=== PATIENT | female | born 1990 | race Caucasian/White ===

== ENCOUNTER 2016-05-19 19:25 | Emergency (ER) ==
[2016-05-19 19:43] LABS: MANUAL DIFF NEEDED? NO
[2016-05-19 19:47] LABS: URINE CULTURE NEEDED? NO; URINE MICRO REVIEW NEEDED? NO; URINE SOURCE CLEAN CATCH
[2016-05-19 19:49] LABS: BASO% 0.4 % (0.0-0.8); EOS% 0.9 % (0.0-10.0); HEMATOCRIT 41.4 % (37.0-47.0); HEMOGLOBIN 14.2 g/dL (12.0-16.0); IMM GRAN# 0.03 X1000 (0.0-0.04); IMM GRAN% 0.3 % (0.0-0.5); LYMPH# 3.43 X1000 (1.2-3.4); LYMPH% 32.3 % (20.5-51.1); MCH 33.2 PG (27-31); MCHC 34.3 g/dL (33-37); MCV 96.7 FL (81-99); MONO# 0.49 X1000 (0.11-0.59); MONO% 4.6 % (1.7-9.3); MPV 10.7 FL (7.4-10.4); NEUT% 61.5 % (42.2-75.2); PLT 315 X1000 (130-400); RBC 4.28 XMIL (4.2-5.4)
[2016-05-19 19:54] LABS: BILIRUBIN URINE NEGATIVE (NEGATIVE); BLOOD URINE NEGATIVE (NEGATIVE); COLOR YELLOW; GLUCOSE URINE NEGATIVE (NEGATIVE); LEUKOCYTES URINE NEGATIVE (NEGATIVE); NITRITE URINE NEGATIVE (NEGATIVE); PH URINE 7.5; PROTEIN URINE NEGATIVE (NEGATIVE); SP GRAVITY URINE 1.021; TURBIDITY URINE HAZY (CLEAR); UR EPITHELIAL CELLS <10 /HPF (<10); URINE BACTERIA 1+ /HPF; URINE RBC <10 /HPF (<10); URINE WBC <10 /HPF (<10); UROBILINOGEN URINE NORMAL (NORMAL)
[2016-05-19 20:07] LABS: AGAP 13; ALKALINE PHOSPHATASE 55 U/L (32-104); AMYLASE 44 U/L (20-200); BUN 12 mg/dL (8-22); CALCIUM 8.7 mg/dL (8.8-10.2); CHLORIDE 104 mmol/L (98-107); COSMO 276; GOT 18 U/L (10-30); GPT 30 U/L (10-36); LIPASE 57 U/L (13-60); POTASSIUM 4.2 mmol/L (3.5-5.1); SODIUM 137 mmol/L (136-145); TCO2 20 mmol/L (25-35); TOTAL BILIRUBIN 0.26 mg/dL (0.20-1.00); TOTAL PROTEIN 6.1 g/dL (6.3-8.3)
[2016-05-19] MEDS ORDERED: DILAUDID IV ONE (20:15)
[2016-05-19] MEDS ORDERED: ZOFRAN IV ONE (20:15)
[2016-05-19] MEDS ORDERED: FLAGYL 500 MG/NS 100 ML IV ONE (20:15)
[2016-05-19] MEDS ORDERED: NS 1,000 ML IV ONE (20:15)
--- NOTE | 2016-05-19 20:22 | PROVIDER DOCUMENTATION ---
HPI-Abdominal Pain/GI Problem - General Chief Complaint: Abdominal Pain Stated Complaint: BLOOD IN STOOL, LOWER RT SIDE PAIN Time Seen by Provider: 05/19/16 20:06 Source: patient Allergies/Adverse Reactions: Patient Allergies Allergy/AdvReac Type Severity Reaction Status Date / Time No Known Allergies Allergy Verified 05/19/16 19:40 - History of Present Illness-ABD Nature of Presenting Problems: Pt is a 26 yof who presents to ER with CC of generalized abdominal pain x3 days and diarrhea for the past month. Pt reports that she has been having diarrhea and hematochezia for the past month and has recently been having worsening acid reflux. Pt reports that her father's side of her family has hx of Crohn's disease, and pt reports that she was diagnosed with diverticulitis at [facility] 6- 8 months ago. On exam, pt has moderate RLQ and epigastric tenderness on palpations. Abdominal Pain Onset Location: reports: RLQ, epigastric Pain Radiation: reports: no radiation Quality of Pain: reports: cramping Severity in ED: reports: moderate Onset/Duration: reports: other (Diarrhea and hematochezia:1 month Abdominal pain x3 days) Timing: reports: still present, getting worse Associated Symptoms: reports: diarrhea (with hematochezia), fever/chills (No fever, but reports chills), heartburn. denies: constipation, loss of appetite, nausea, shortness of breath, vomiting, weakness Last BM: this evening Dark Stools Present?: reports: other ("Blood in stool") Rectal Bleeding: reports: bloody diarrhea Review of Systems - Adult - REVIEW OF SYSTEMS - ADULT Constitutional: reports: chills, night sweats. denies: fever, fatique Eyes: reports: no symptoms reported Ears, Nose, Mouth & Throat: reports: no symptoms reported Cardiovascular: reports: no symptoms reported Respiratory: reports: no symptoms reported Gastrointestinal: reports: abdominal pain, diarrhea, frequent heartburn, rectal bleeding, other (hematochezia). denies: hematemesis, constipation, difficulty swallowing, nausea, poor appetite, vomiting Genitourinary: reports: no symptoms reported Musculoskeletal: reports: no symptoms reported Integumentary: reports: no symptoms reported Neurological: reports: no symptoms reported Psychiatric: reports: no symptoms reported Endocrine: reports: no symptoms reported Hematologic/Lymphatic: reports: no symptoms reported Allergic/Immunologic: reports: no symptoms reported All Other Systems: Reviewed and Negative Past History - Adult - PAST MEDICAL HISTORY-ADULT Review of Records: reports: Nursing Assessment Review, Medications Reviewed Gastrointestinal: reports: other (diverticulitis) - PRIOR SURGERIES/PROCEDURES Surgical/Procedure History: reports: cholecystectomy, other (wisdom teeth) - IMMUNIZATION STATUS Childhood Immunizations: See Nurse Assessment Flu Vaccine: See Nurse Assessment - FAMILY HISTORY Family History: other (Father has hx of Chron's diseae.) - SOCIAL HISTORY Smoking: cigarettes, less than 1 pack/day Provider spent 3-5 mins advising pt. on dangers of tobacco.: Discussed manners to quit use, and f/u contacts for add'l counseling. Physical Exam-General - PHYSICAL EXAM-ADULT Initial Vital Signs Reviewed: Yes - CONSTITUTIONAL General Appearance: appears well, alert, mild distress - RESPIRATORY Respiratory: chest non-tender, lungs clear, normal breath sounds - CARDIOVASCULAR Cardiovascular: normal peripheral pulses, regular rate, rhythm - GASTROINTESTINAL (ABDOMEN) Abdominal Exam: normal bowel sounds, soft, tenderness (RLQ and epigastric) - LYMPHATIC Lymphatic: no adenopathy - MUSCULOSKELETAL Back Exam: no CVA tenderness, no vertebral tenderness Extremity: normal range of motion, non-tender, normal gait - SKIN Integumentary: normal color, normal turgor, warm/dry - NEUROLOGIC Neurologic: grossly normal, no motor/sensory deficits - PSYCHIATRIC Psych/Mental Status: normal mood/affect, normal thought content, normal thought process, oriented x 3 Progress - PLAN OF CARE/RESULTS Progress/Plan/Lab Results: Vital Signs - 24 hr 05/19/16 19:30 Temperature 98.3 F Pulse Rate 91 H Respiratory 14 Rate Blood Pressure 150/85 O2 Sat by Pulse 98 Oximetry Orders Category Date Time Status CT ABD/PELVIS W/ IV CONT ONLY [CT] Stat Exams 05/19/16 20:17 Taken AMYLASE [CHEM] Stat Lab 05/19/16 19:37 Completed CBC WITH ELECTRONIC DIFF [HEME] Stat Lab 05/19/16 19:37 Completed COMPREHENSIVE METABOLIC PANEL [CHEM] Stat Lab 05/19/16 19:37 Completed LIPASE [CHEM] Stat Lab 05/19/16 19:37 Completed TEST-URINE [PREG] Stat Lab 05/19/16 19:44 Completed Stool [C DIFF TOXIN] [STOOL] Stat Lab 05/19/16 19:48 Uncollected Stool [OCCULT BLOOD SCREENING] [STOOL] Stat Lab 05/19/16 19:34 Uncollected UA NIMS W/REFLEX CULT [URINALYSIS] Stat Lab 05/19/16 19:44 Completed 0.9% Sodium Chloride Inj [Ns] 1,000 ml Med 05/19/16 20:15 Discontinued IV 999 mls/hr Hydromorphone [Dilaudid] Med 05/19/16 20:15 Discontinued 1 mg IV NOW ONE Metronidazole 500 mg/Ns [Flagyl 500 mg/Ns] 100 ml Med 05/19/16 20:15 Discontinued IV NOW Ondansetron [Zofran] Med 05/19/16 20:15 Discontinued 4 mg IV NOW ONE Laboratory Tests 05/19/16 05/19/16 05/19/16 19:37 19:37 19:44 WBC 10.61 RBC 4.28 Hgb 14.2 Hct 41.4 MCV 96.7 MCH 33.2 H MCHC 34.3 RDW Std Deviation 13.0 Plt Count 315 MPV 10.7 H Immature Gran % (Auto) 0.3 Neut % (Auto) 61.5 Lymph % (Auto) 32.3 Stephenson % (Auto) 4.6 Eos % (Auto) 0.9 Baso % (Auto) 0.4 Immature Gran # (Auto) 0.03 Neut # (Auto) 6.52 H Lymph # (Auto) 3.43 H Stephenson # (Auto) 0.49 Eos # (Auto) 0.10 Baso # (Auto) 0.04 Sodium 137 Potassium 4.2 Chloride 104 Carbon Dioxide 20 L Anion Gap 13 BUN 12 Creatinine 0.7 Estimated GFR/1.73 m2 > 60 BUN/Creatinine Ratio 17 Glucose 136 H Calculated Osmolality 276 Calcium 8.7 L Total Bilirubin 0.26 AST 18 ALT 30 Alkaline Phosphatase 55 Total Protein 6.1 L Albumin 4.0 Globulin 2.1 Albumin/Globulin Ratio 1.9 Amylase 44 Lipase 57 Urine Source Urine Color Urine Turbidity Urine pH Ur Specific [place] Urine Protein Ur Glucose (Stick) Ur Ketones (Stick) Urine Blood Urine Nitrite Urine Bilirubin Urobilinogen Dipstick Urine Leukocytes Urine WBC (Auto) Urine RBC (Auto) U Epithel Cells (Auto) Urine Bacteria (Auto) Urine Test NEGATIVE 05/19/16 19:44 WBC RBC Hgb Hct MCV MCH MCHC RDW Std Deviation Plt Count MPV Immature Gran % (Auto) Neut % (Auto) Lymph % (Auto) Stephenson % (Auto) Eos % (Auto) Baso % (Auto) Immature Gran # (Auto) Neut # (Auto) Lymph # (Auto) Stephenson # (Auto) Eos # (Auto) Baso # (Auto) Sodium Potassium Chloride Carbon Dioxide Anion Gap BUN Creatinine Estimated GFR/1.73 m2 BUN/Creatinine Ratio Glucose Calculated Osmolality Calcium Total Bilirubin AST ALT Alkaline Phosphatase Total Protein Albumin Globulin Albumin/Globulin Ratio Amylase Lipase Urine Source CLEAN CATCH Urine Color YELLOW Urine Turbidity HAZY Urine pH 7.5 Ur Specific [place] 1.021 Urine Protein NEGATIVE Ur Glucose (Stick) NEGATIVE Ur Ketones (Stick) NEGATIVE Urine Blood NEGATIVE Urine Nitrite NEGATIVE Urine Bilirubin NEGATIVE Urobilinogen Dipstick NORMAL Urine Leukocytes NEGATIVE Urine WBC (Auto) <10 Urine RBC (Auto) <10 U Epithel Cells (Auto) <10 Urine Bacteria (Auto) 1+ Urine Test - CT/MRI 1 CT Study: Abdomen, Pelvis Impression: See EMR Report CT Results: constipation Departure - Departure Time of Disposition Order: 21:47 DIAGNOSIS: Colitis Constipation Qualifiers: Constipation type: unspecified constipation type Qualified Code(s): K59.00 - Constipation, unspecified Abdominal pain Qualifiers: Abdominal location: unspecified location Qualified Code(s): R10.9 - Unspecified abdominal pain Disposition: HOME 01 Certified Medical Emergency: Emergent Condition: Stable Additional Instructions: Follow up with Dr. Bennett ED Follow Up Instructions: You have been treated by a care provider in the Emergency Department. These instructions are being provided to you so you can have an understanding of how to care for yourself upon discharge. Upon discharge from the Emergency Department, you are responsible for making arrangements for follow-up care by a physician of your choice. Take all prescribed medications as directed. Return to the Emergency Department immediately for any new or worsening symptoms. You may call the Physician Referral phone number at [phone] to obtain a list of Physicians who are taking new patients. Prescriptions: Ciprofloxacin HCl [Cipro] 500 mg PO BID 7 Days Polyethylene Glycol 3350 [Miralax] 17 gm PO DAILY #7 powd.pack Tramadol [Ultram] 50 mg PO TID PRN PRN #30 tablet PRN Reason: Pain Referrals: None,PCP [Primary Care Provider] - Jaswinder Bennett MD [STAFF PHYSICIAN] - Attestation - Scribe Verification/Attestation Scribe:: Ruben Chu Acting as Scribe for:: Eddie Up Scribe documention review:: This chart was documented by a scribe and accurately reflects the service the provider performed and the decisions made by the provider.
[2016-05-19 22:50] VITALS: BP 145/91
--- NOTE | 2016-05-20 00:19 | Diag Imaging Result Document ---
PROCEDURE NAME: CT ABD/PELVIS W/ IV CONT ONLY - 05/19/2016 CT ABDOMEN AND PELVIS WITH INTRAVENOUS CONTRAST: TECHNIQUE: Dose reduction technique not used. COMPARISON: 07/31/2015. FINDINGS: The gallbladder has been removed. There is fatty infiltration of the liver. Normal spleen, pancreas, adrenal glands, and kidneys. No hydronephrosis. Normal aorta. There is stool throughout the colon. No bowel obstruction. Normal appendix. No abscess. There are small bilateral ovarian cysts. Normal uterus. The urinary bladder is only mildly distended. IMPRESSION: 1. Constipation. 2. Cholecystectomy. 3. Fatty infiltration of the liver. 4. Normal appendix. A preliminary report was given at 9:21 p.m.
== END 2016-05-19 22:51 | disposition home or self-care (01) ==
LOC: ED 19:25
DX: K52.9 Noninfective gastroenteritis and colitis, unspecified (principal); K59.00 Constipation, unspecified; R10.84 Generalized abdominal pain; K76.0 Fatty (change of) liver, not elsewhere classified; R19.7 Diarrhea, unspecified; K92.1 Melena; R10.31 Right lower quadrant pain; R10.816 Epigastric abdominal tenderness; R68.83 Chills (without fever); R12 Heartburn; R61 Generalized hyperhidrosis; K62.5 Hemorrhage of anus and rectum; R10.813 Right lower quadrant abdominal tenderness; F17.210 Nicotine dependence, cigarettes, uncomplicated; Z71.6 Tobacco abuse counseling
CPT/HCPCS: 36415; 74177; 80053; 81001; 81025; 82150; 83690; 85025; 96365; 96375; J1170; J2405; J7030; Q9967; S0030